=== PATIENT | female | born 1990 | race Caucasian/White ===

== ENCOUNTER 2020-12-20 13:14 | Emergency (ER) | payer BC, OTHER ==
[2020-12-20 13:49] VITALS: RESP 18
--- NOTE | 2020-12-20 14:50 | XR ---
EXAMINATION TYPE: XR Hip Bilateral Complete DATE OF EXAM: 12/20/2020 COMPARISON: NONE HISTORY: Pain TECHNIQUE: 2 views submitted FINDINGS: There is no evidence of erosive change or acute fracture. IMPRESSION: 1. No evidence of acute fracture or dislocation.
--- NOTE | 2020-12-20 14:51 | XR ---
EXAM TYPE: LUMBAR SPINE X RAY SERIES COMPARISON: NONE HISTORY: Pain TECHNIQUE: 4 views are submitted. FINDINGS: Alignment is anatomic. The pedicles are intact. The transverse processes are intact. There is no s pondylolysis or spondylolisthesis. IMPRESSION: 1. No acute process.
[2020-12-20] MEDS ORDERED: MORPHINE SULFATE 2 MG/ML SYRINGE IVP ONE (14:55)
[2020-12-20] MEDS ORDERED: methylPREDNISolone SOD SUCCI 125 MG/2 ML VIAL IV STA (14:55)
[2020-12-20] MEDS ORDERED: methylPREDNISolone SOD SUCCI 125 MG/2 ML VIAL IM ONE (14:57)
[2020-12-20] MEDS ORDERED: MORPHINE SULFATE 2 MG/ML SYRINGE IM STA (14:57)
--- NOTE | 2020-12-20 15:04 | ED ---
General Adult HPI - General Chief complaint: Extremity Problem,Nontraumatic Stated complaint: R hip pain Time Seen by Provider: 12/20/20 14:44 Source: patient, RN notes reviewed Mode of arrival: ambulatory Limitations: no limitations - History of Present Illness Initial comments: Patient is a 30-year-old female that presents to the emergency department complaining of low back pain with radiation of the right hip. She denied any recent injury or trauma. She notes that is been going on for approximately 3 days. She notes that she has had the similar pain in the past but usually goes away on its own. She was otherwise a well-appearing 30-year-old female with no other issues or complaints. She denied any weakness numbness tingling saddle anesthesia bladder or bowel incontinence. - Related Data Home Medications Medication Instructions Recorded Confirmed Multivitamin [Children's 2 tab PO DAILY 09/19/15 11/23/15 Multivitamins] Previous Rx's Medication Instructions Recorded predniSONE 50 mg PO DAILY #5 tab 12/20/20 Allergies Allergy/AdvReac Type Severity Reaction Status Date / Time cyclobenzaprine HCl Allergy Rash/Hives Verified 12/20/20 13:49 [From Flexeril] tomato [Tomato] Allergy Rash/Hives Verified 12/20/20 13:49 Review of Systems ROS Statement: Those systems with pertinent positive or pertinent negative responses have been documented in the HPI. ROS Other: All systems not noted in ROS Statement are negative. Past Medical History Past Medical History: No Reported History Additional Past Medical History / Comment(s): Past obstetrical history: In her first she had a 31 week section for breech and the infant has . Patient has successful at 36 weeks, and another first successful at 39 weeks with weekly progesterone injections. This she's been seeing Dr. Barillas and has had a consult with Dr. Maki. She is not due to see him again until November 24. History of Any Multi-Drug Resistant Organisms: None Reported Past Surgical History: Section Past Anesthesia/Blood Transfusion Reactions: No Reported Reaction Past Psychological History: No Psychological Hx Reported Smoking Status: Never smoker Past Alcohol Use History: Occasional Past Drug Use History: None Reported - Past Family History Father Additional Family Medical History / Comment(s): Patient states father has "heart problems". General Exam Limitations: no limitations General appearance: alert, in no apparent distress Head exam: Present: atraumatic, normocephalic, normal inspection Eye exam: Present: normal appearance, PERRL, EOMI. Absent: scleral icterus, conjunctival injection, periorbital swelling Neck exam: Present: normal inspection Respiratory exam: Present: normal lung sounds bilaterally. Absent: respiratory distress, wheezes, rales, rhonchi, stridor Cardiovascular Exam: Present: regular rate, normal rhythm, normal heart sounds. Absent: systolic murmur, diastolic murmur, rubs, gallop, clicks Extremities exam: Present: normal inspection, full ROM, normal capillary refill. Absent: tenderness, pedal edema, joint swelling, calf tenderness Back exam: Present: normal inspection, tenderness (Right SI) Neurological exam: Present: alert, oriented X3 Psychiatric exam: Present: normal affect, normal mood Skin exam: Present: warm, dry, intact, normal color. Absent: rash Course Vital Signs 12/20/20 13:46 Temperature 98.5 F Pulse Rate 80 Respiratory 18 Rate Blood Pressure 126/79 O2 Sat by Pulse 98 Oximetry Medical Decision Making - Medical Decision Making 30-year-old female complaining of right lower back pain with radiation of the right leg. X-ray of the lumbar spine, x-ray of the hips ordered. 125 mg of Solu-Medrol, 2 mg of morphine ordered. X-ray imaging negative for any acute osseous abnormalities. Patient most likely has sciatica with radicular symptoms. Case discussed with Dr. Bourgeois, patient can discharge home. - Radiology Data Radiology results: report reviewed, image reviewed X-ray lumbar spine: No acute process. X-ray of the bilateral hips: No evidence of acute fracture dislocation. Disposition Clinical Impression: Sciatica, Lumbar radiculopathy Disposition: HOME SELF-CARE Condition: Stable Instructions (If sedation given, give patient instructions): Back Pain (ED) Additional Instructions: Please return to the Emergency Department if symptoms worsen or any other concerns. Follow-up with primary care in one to days, discuss potential physical therapy. Take steroids as prescribed. Is patient prescribed a controlled substance at d/c from ED?: No Referrals: None,Stated [Primary Care Provider] - 1-2 days Time of Disposition: 15:04
[2020-12-20 15:24] VITALS: BP 122/74; PULSE 81; TEMP 98.4
== END 2020-12-20 15:23 | disposition home or self-care (01) ==
LOC: EC 13:14
DX: M54.41 Lumbago with sciatica, right side (principal); M54.16 Radiculopathy, lumbar region; Z88.8 Allergy status to other drugs, medicaments and biological substances; Z91.018 Allergy to other foods
CPT/HCPCS: 72100; 73521; 99283; 96372; J2930; J2270

== ENCOUNTER → 2021-03-06 | Outpatient (CLI) | payer BC ==
--- NOTE | 2021-03-07 06:34 | MR ---
EXAMINATION TYPE: MR hip RT wo con DATE OF EXAM: 03/06/2021 COMPARISON: None HISTORY: Right hip pain, and limited movement for 3 years that has gotten worse this year Multiplanar multiecho imaging of the pelvis and right hip without contrast. The pelvic ring appears intact. Proximal femurs and hip joints are intact. There is no evidence of av ascular necrosis. There is no significant hip joint fluid. Hip joint spaces appear normal. There is no evidence of free fluid in the pelvis. Bladder distends smoothly. There are multiple cervi kamaljit cysts. There is no sign of a pelvic mass. Sacroiliac joints appear intact. IMPRESSION: Negative MR scan of the right hip.
== END | disposition home or self-care (01) ==
LOC: RADMRIMAIN 19:09
PROVIDERS: ATTEND Orthopaedic Surgery
DX: M25.551 Pain in right hip (principal)

== ENCOUNTER 2022-05-14 09:07 | Emergency (ER) | payer BC, OTHER ==
[2022-05-14 09:16] VITALS: BP 108/67; PULSE 92; RESP 18; TEMP 98
--- NOTE | 2022-05-14 09:37 | XR ---
EXAMINATION TYPE: XR Hip Complete LT DATE OF EXAM: 05/14/2022 9:32 AM INDICATION: Patient age:Female; 32 years old; Reason for study: Pain from fall; [facility]. COMPARISON: Bilateral hip radiographs 12/20/2020 TECHNIQUE: The left hip was examined in the frontal and lateral projections and a AP pelvis. FINDINGS: No evidence of any acute osseous pathology, joint dislocation, or soft tissue swelling. IMPRESSION: No acute osseous pathology.
--- NOTE | 2022-05-14 09:45 | ED ---
Lower Extremity Injury HPI - General Chief Complaint: Extremity Injury, Lower Stated Complaint: [facility] - fall - hip pain Time Seen by Provider: 05/14/22 09:18 Source: patient, RN notes reviewed Mode of arrival: ambulatory Limitations: no limitations - History of Present Illness Initial Comments: This is a 32-year-old female who presents to the emergency department for left hip pain. 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 She did not actually fall, but is concerned that she may have twisted her left hip. 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 She took ibuprofen at home yesterday, which she states was effective. The pain is more pronounced when she walks, however she states that she is still able to ambulate. Denies any fevers, chills, sore throat, cough, dyspnea, chest pain, palpi tations, abdominal pain, nausea, vomiting, diarrhea, back pain, or headaches. MD Complaint: hip injury Onset/Timin -: days(s) Injury: Hip: Left Place: work - Related Data Home Medications Medication Instructions Recorded Confirmed Multivitamin [Children's 2 tab PO DAILY 09/19/15 11/23/15 Multivitamins] Previous Rx's Medication Instructions Recorded predniSONE 50 mg PO DAILY #5 tab 12/20/20 Allergies Allergy/AdvReac Type Severity Reaction Status Date / Time cyclobenzaprine HCl Allergy Rash/Hives Verified 05/14/22 09:16 [From Flexeril] tomato [Tomato] Allergy Rash/Hives Verified 05/14/22 09:16 Review of Systems ROS Statement: Those systems with pertinent positive or pertinent negative responses have been documented in the HPI. ROS Other: All systems not noted in ROS Statement are negative. Past Medical History Past Medical History: No Reported History Additional Past Medical History / Comment(s): Past obstetrical history: In her first she had a 31 week section for breech and the infant has . Patient has successful at 36 weeks, and another first successful at 39 weeks with weekly progesterone injections. This she's been seeing Dr. Barillas and has had a consult with Dr. Maki. She is not due to see him again until November 24. History of Any Multi-Drug Resistant Organisms: None Reported Past Surgical History: Section Past Anesthesia/Blood Transfusion Reactions: No Reported Reaction Past Psychological History: No Psychological Hx Reported Smoking Status: Never smoker Past Alcohol Use History: Occasional Past Drug Use History: None Reported - Past Family History Father Additional Family Medical History / Comment(s): Patient states father has "heart problems". General Exam Limitations: no limitations General appearance: alert, in no apparent distress Head exam: Present: atraumatic, normocephalic, normal inspection Respiratory exam: Present: normal lung sounds bilaterally. Absent: respiratory distress, wheezes, rales, rhonchi, stridor Cardiovascular Exam: Present: regular rate, normal rhythm, normal heart sounds. Absent: systolic murmur, diastolic murmur, rubs, gallop, clicks Extremities exam: Present: other (Tenderness to palpation over the left greater trochanter. Limited active range of motion secondary to pain. No overlying ecchymosis. 2+ dorsalis pedis and tibialis posterior pulses.) Neurological exam: Present: alert, oriented X3, CN II-XII intact Psychiatric exam: Present: normal affect, normal mood Skin exam: Present: warm, dry, intact, normal color. Absent: rash Course Vital Signs 05/14/22 09:09 Temperature 98 F Pulse Rate 92 Respiratory 18 Rate Blood Pressure 108/67 O2 Sat by Pulse 98 Oximetry Medical Decision Making - Medical Decision Making This is a 32 year old female who presents to the emergency department for left hip pain. Was pt. sent in by a medical professional or institution? @ -[facility] Did you speak to anyone other than the patient for history? @ -No Did you review nursing and triage notes? @ -Disagree, the patient did not actually fall, she stumbled when coming off of the steps. Were old charts reviewed? @ -No Differential Diagnosis? @ -Differential diagnosis of left hip pain: fracture, dislocation, contusion, strain, bursitis, this is not meant to be an all-inclusive list. X-rays interpreted by me (1pt min.)? @ -My interpretation of the left hip x-ray identifies no acute fractures or dislocations. What testing was considered but not performed? (CT, X-rays, U/S, labs)? Why? @ -None What meds were considered but not given? Why? @ -I offered Ibuprofen or Toradol, however the patient declined the need for pain medication at this time. Did you discuss the management of the patient with other professionals? @ -No Did you reconcile home meds? @ -No Was smoking cessation discussed for >3mins.? @ -No Was critical care preformed (if so, how long)? @ -No Were there social determinants of health that impacted care today? How? (Homelessness, low income, unemployed, alcoholism, drug addiction, transportation, low edu. Level, literacy, decrease access to med. care, halfway, rehab)? @ -No Was there de-escalation of care discussed even if they declined? (Discuss DNR or withdrawal of care, Hospice)? @ -No What co-morbidities impacted this encounter? (DM, HTN, Smoking, COPD, CAD, Cancer, CVA, Hep., AIDS, mental health diagnosis, sleep apnea, morbid obesity)? @ -Morbid obesity Was patient admitted / discharged? @ -Discharged. X-ray of the left hip obtained with no acute findings as listed above. Patient declined the need for any ibuprofen to treat her pain. She is instructed to alternate with ibuprofen and Tylenol as needed for pain relief and to apply ice for 10-15 minutes every 2-3 hours for the first 2-3 days followed by heat there afterwards. Instructed her to follow-up with her primary care provider to reevaluate symptoms and ensure that she is improving, or discuss the need for any additional imaging if the pain persists or worsens. Undiagnosed new problem with uncertain prognosis? @ -Left hip pain Drug Therapy requiring intensive monitoring for toxicity (Heparin, Nitro, Insulin, Cardizem)? @ -None Were any procedures done? @ -None Diagnosis/symptom? @ -Left hip pain Acute, or Chronic, or Acute on Chronic? @ -Acute Uncomplicated (without systemic symptoms) or Complicated (systemic symptoms)? @ -Uncomplicated Side effects of treatment? @ -None Exacerbation, Progression, or Severe Exacerbation] @ -Not applicable Poses a threat to life or bodily function? @ -May impact her ability to function if the pain causes difficulty walking. Return precautions reviewed in depth, the patient is instructed to return to the emergency department with any new, worsening, or concerning symptoms. Patient verbalized understanding. This case was discussed in detail with the attending ED physician, Dr. Machuca. Presentation, findings, and treatment plan discussed in detail as well. - Radiology Data Radiology results: report reviewed, image reviewed Disposition Clinical Impression: Left hip pain Disposition: HOME SELF-CARE Instructions (If sedation given, give patient instructions): Hip Pain (ED) Additional Instructions: Return to the emergency department with any new, worsening, or concerning symptoms. Alternate with ibuprofen and Tylenol as needed for pain relief. Apply ice for 10-15 minutes every 2-3 hours for the first 2-3 days followed by heat there afterwards. Follow up with your primary care provider in 1-2 days. Is patient prescribed a controlled substance at d/c from ED?: No Referrals: Ashish Carter MD [Primary Care Provider] - 1-2 days
== END 2022-05-14 10:15 | disposition home or self-care (01) ==
LOC: EC 09:07
DX: M25.552 Pain in left hip (principal); Z91.018 Allergy to other foods; Z88.8 Allergy status to other drugs, medicaments and biological substances
CPT/HCPCS: 73502; 99283

== ENCOUNTER 2023-06-25 10:00 | Emergency (ER) | payer OTHER ==
[2023-06-25 10:18] VITALS: RESP 18; TEMP 98.1
--- NOTE | 2023-06-25 10:26 | ED ---
Lower Extremity Injury HPI - General Chief Complaint: Extremity Injury, Lower Stated Complaint: R ankle,knee injury Time Seen by Provider: 06/25/23 10:24 Source: patient, RN notes reviewed Mode of arrival: ambulatory Limitations: no limitations - History of Present Illness Initial Comments: This is a 33 year old female who presents to the emergency department for right knee and ankle pain. States that she twisted her right leg a couple of days ago while trying to put a shoe on the left foot. She initially went to [facility], they examined her but did not do any x-rays. States that the pain and swelling seem to be getting worse and now her leg feels very tight. She is still able to ambulate. - Related Data Home Medications Medication Instructions Recorded Confirmed Multivitamin [Children's 2 tab PO DAILY 09/19/15 11/23/15 Multivitamins] Previous Rx's Medication Instructions Recorded predniSONE 50 mg PO DAILY #5 tab 12/20/20 Allergies Allergy/AdvReac Type Severity Reaction Status Date / Time cyclobenzaprine HCl Allergy Rash/Hives Verified 05/14/22 09:16 [From Flexeril] tomato [Tomato] Allergy Rash/Hives Verified 05/14/22 09:16 Review of Systems ROS Statement: Those systems with pertinent positive or pertinent negative responses have been documented in the HPI. ROS Other: All systems not noted in ROS Statement are negative. Past Medical History Past Medical History: No Reported History Additional Past Medical History / Comment(s): Past obstetrical history: In her first she had a 31 week section for breech and the has . Patient has successful at 36 weeks, and another first successful at 39 weeks with weekly progesterone injections. This she's been seeing Dr. Barillas and has had a consult with Dr. Maki. She is not due to see him again until November 24. History of Any Multi-Drug Resistant Organisms: None Reported Past Surgical History: Section Past Anesthesia/Blood Transfusion Reactions: No Reported Reaction Past Psychological History: No Psychological Hx Reported Smoking Status: Never smoker Past Alcohol Use History: Occasional Past Drug Use History: None Reported - Past Family History Father Additional Family Medical History / Comment(s): Patient states father has "heart problems". General Exam Limitations: no limitations General appearance: alert, in no apparent distress Head exam: Present: atraumatic, normocephalic, normal inspection Respiratory exam: Present: normal lung sounds bilaterally. Absent: respiratory distress, wheezes, rales, rhonchi, stridor Cardiovascular Exam: Present: regular rate, normal rhythm, normal heart sounds. Absent: systolic murmur, diastolic murmur, rubs, gallop, clicks Extremities exam: Present: other (Minor swelling and tenderness over the right patella and lateral aspect of the right ankle. Full range of motion.) Neurological exam: Present: alert, oriented X3, CN II-XII intact Psychiatric exam: Present: normal affect, normal mood Skin exam: Present: warm, dry, intact, normal color. Absent: rash Course Vital Signs 06/25/23 06/25/23 10:10 12:03 Temperature 98.1 F Pulse Rate 103 H 93 Respiratory 18 18 Rate Blood Pressure 114/71 103/61 O2 Sat by Pulse 99 99 Oximetry Medical Decision Making - Medical Decision Making This is a 33 year old female who presents to the emergency department for right knee and ankle pain. Was pt. sent in by a medical professional or institution? @ -No Did you speak to anyone other than the patient for history? @ -No Did you review nursing and triage notes? @ -Yes, and I agree, it is accurate with regards to the patient's symptoms. Were old charts reviewed? @ -No Differential Diagnosis? @ -Differential Musculoskeletal: Muscular strain, contusion, ligament sprain, fracture, arthritis, septic arthritis, bursitis, cellulitis, muscle spasm, nerve compression, DVT, arterial occlusion, herpes zoster, electrolyte abnormality, tumor.... This is not meant to be in all inclusive list EKG interpreted by me (3pts min.)? @ -Not obtained X-rays interpreted by me (1pt min.)? @ -X-ray of the right knee and ankle obtained. My interpretation identifies no acute fractures. CT interpreted by me (1pt min.)? @ -Not obtained U/S interpreted by me (1pt. min.)? @ -Not obtained What testing was considered but not performed? (CT, X-rays, U/S, labs)? Why? @ -None What meds were considered but not given? Why? @ -None Did you discuss the management of the patient with other professionals? @ -No Did you reconcile home meds? @ -No Was smoking cessation discussed for >3mins.? @ -No Was critical care preformed (if so, how long)? @ -No Were there social determinants of health that impacted care today? How? (Homelessness, low income, unemployed, alcoholism, drug addiction, transportation, low edu. Level, literacy, decrease access to med. care, long term, rehab)? @ -No Was there de-escalation of care discussed even if they declined? (Discuss DNR or withdrawal of care, Hospice)? @ -No What co-morbidities impacted this encounter? (DM, HTN, Smoking, COPD, CAD, Cancer, CVA, Hep., AIDS, mental health diagnosis, sleep apnea, morbid obesity)? @ -None Was patient admitted / discharged? @ -Discharged. X-ray of the right knee and ankle obtained demonstrating medial soft tissue swelling and a trace knee joint effusion. The right ankle also showed anterior and lateral soft tissue swelling with underlying joint effusion. No acute osseous abnormalities were identified. Patient declined the need for any pain medication in the emergency department. I did also offer to prescribe her with ibuprofen, however she states that she has plenty at home she can take. I also offered a knee immobilizer or crutches, however she does have a knee brace that she can use at home. Patient otherwise discharged home in stable condition. Advised ibuprofen and Tylenol as needed for pain relief, elevation, and rest. Undiagnosed new problem with uncertain prognosis? @ -None Drug Therapy requiring intensive monitoring for toxicity (Heparin, Nitro, Insulin, Cardizem)? @ -None Were any procedures done? @ -None Diagnosis/symptom? @ -Right knee sprain, right ankle sprain, joint effusion Acute, or Chronic, or Acute on Chronic? @ -Acute Uncomplicated (without systemic symptoms) or Complicated (systemic symptoms)? @ -Uncomplicated Side effects of treatment? @ -None Exacerbation, Progression, or Severe Exacerbation] @ -Not applicable Poses a threat to life or bodily function? @ -No Return precautions reviewed in depth, the patient is instructed to return to the emergency department with any new, worsening, or concerning symptoms. Patient verbalized understanding. This case was discussed in detail with the attending ED physician, Dr. Bourgeois. Presentation, findings, and treatment plan discussed in detail as well. - Radiology Data Radiology results: report reviewed, image reviewed Disposition Clinical Impression: Right knee sprain, Right ankle sprain, Joint effusion Disposition: HOME SELF-CARE Instructions (If sedation given, give patient instructions): Ankle Sprain (ED), Knee Sprain (ED), Swollen Knee Joint (ED) Additional Instructions: Return to the emergency department with any new, worsening, or concerning symptoms. Alternate with ibuprofen and Tylenol as needed for pain relief. Use the knee brace as needed. Keep the leg elevated is much as possible and try to give it lots of rest and avoid being on your feet for excess amounts until your symptoms start to improve. Contact orthopedics as listed below for your follow- up appointment. Follow up with your primary care provider in 1-2 days. Is patient prescribed a controlled substance at d/c from ED?: No Referrals: Ashish Carter MD [Primary Care Provider] - 1-2 days Miranda Rodriguez DO [Doctor of Osteopathic Medicine] - 1-2 days Time of Disposition: 11:47
--- NOTE | 2023-06-25 11:26 | XR ---
EXAMINATION TYPE: XR knee complete 3 views RT, XR ankle complete 3 views RT DATE OF EXAM: 06/25/2023 COMPARISON: NONE HISTORY: 33-year-old female with twisting injury, fall and pain FINDINGS: Right knee: Trace suprapatellar knee joint effusion is nonspecific. Extensor mechanism is intact. No acute fractu re, subluxation, dislocation. Medial sided soft tissue swelling. Right ankle: Ankle mortise is congruent with preservation of the distal tibiofibular overlap. Small underlying tib iotalar joint effusion. No acute fracture, subluxation, dislocation. Some anterior and lateral sided soft tissue swelling. Tiny 2 mm corticated ossific density below the lateral malleolus suggesting seq uela of old injury. IMPRESSION: 1. Right knee: Medial soft tissue swelling. Trace knee joint effusion is nonspecific. No acute osseou s abnormality seen. If concern for internal derangement, MRI can be performed. 2. Right ankle: Anterior and lateral soft tissue swelling with underlying small joint effusion. No ac richard osseous abnormality seen.
[2023-06-25 12:27] VITALS: BP 103/61; PULSE 93
== END 2023-06-25 12:04 | disposition home or self-care (01) ==
LOC: EC 10:00
DX: S83.91XA Sprain of unspecified site of right knee, initial encounter (principal); S93.401A Sprain of unspecified ligament of right ankle, initial encounter; Z91.018 Allergy to other foods; Z88.8 Allergy status to other drugs, medicaments and biological substances; X50.1XXA Overexertion from prolonged static or awkward postures, initial encounter
CPT/HCPCS: 99283

== ENCOUNTER 2024-01-29 09:43 | Emergency (ER) | payer OTHER ==
[2024-01-29 11:09] LABS: Appearance,Urine Cloudy (Clear); Bilirubin,Urine Negative (Negative); Blood,Urine Negative (Negative); Color,Urine Yellow; Glucose,Urine (UA) Negative (Negative); Ketones,Urine Negative (Negative); Leukocyte Esterase,Urine Trace (Negative); Mucus,Urine Many /hpf; Nitrite,Urine Negative (Negative); PH, Urine 5.5 (5.0-8.0); Protein,Urine Trace (Negative); RBC,Urine 2 /hpf (0-5); Specific Gravity,Urine 1.035 (1.001-1.035); Squamous Epithelial Cell,Urine 4 /hpf (0-4); WBC,Urine 3 /hpf (0-5)
[2024-01-29 11:19] LABS: Basophils % (A) 0 %; Eosinophils # (A) 0.1 k/uL (0-0.7); Eosinophils % (A) 2 %; HCT 37.7 % (34.0-46.0); HGB 12.7 gm/dL (11.4-16.0); Lymphocytes # (A) 1.4 k/uL (1.0-4.8); Lymphocytes % (A) 17 %; MCH 29.3 pg (25.0-35.0); MCHC 33.6 g/dL (31.0-37.0); MCV 87.2 fL (80.0-100.0); Mean Platelet Volume 7.9; Monocytes # (A) 0.3 k/uL (0-1.0); Monocytes % (A) 4 %; Neutrophils # (A) 6.2 k/uL (1.3-7.7); Neutrophils % (A) 76 %; Platelet Count 316 k/uL (150-450); RBC 4.32 m/uL (3.80-5.40); WBC 8.3 k/uL (3.8-10.6)
[2024-01-29 11:30] LABS: HCG,Qualitative Serum Not Detected
--- NOTE | 2024-01-29 11:31 | ED ---
General Adult HPI - General Chief complaint: Neuro Symptoms/Deficit Stated complaint: L side facial numbness Time Seen by Provider: 01/29/24 10:07 Source: patient, RN notes reviewed Mode of arrival: ambulatory Limitations: no limitations - History of Present Illness Initial comments: This is a 33-year-old female who presents to the emergency department for left- sided facial numbness. States that she woke up yesterday and felt like the left side of her face was numb. She also felt like the left side of her face was swollen. She had a minor headache and pain along the left side of her jaw. This seemed to then occur intermittently throughout the day. As the day progressed she felt like she could not fully close the eye. Symptoms did not go elsewhere, states that it only stayed in the face. - Related Data Home Medications Medication Instructions Recorded Confirmed Multivitamin [Children's 2 tab PO DAILY 09/19/15 11/23/15 Multivitamins] Previous Rx's Medication Instructions Recorded predniSONE 50 mg PO DAILY #5 tab 12/20/20 predniSONE [Deltasone] 60 mg PO DAILY 7 Days #21 tab 01/29/24 valACYclovir HCL [Valacyclovir] 1,000 mg PO TID 7 Days #21 tab 01/29/24 Allergies Allergy/AdvReac Type Severity Reaction Status Date / Time cyclobenzaprine HCl Allergy Rash/Hives Verified 01/29/24 09:47 [From Flexeril] tomato [Tomato] Allergy Rash/Hives Verified 01/29/24 09:47 Review of Systems ROS Statement: Those systems with pertinent positive or pertinent negative responses have been documented in the HPI. ROS Other: All systems not noted in ROS Statement are negative. Past Medical History Past Medical History: No Reported History Additional Past Medical History / Comment(s): Past obstetrical history: In her first she had a 31 week section for breech and the has . Patient has successful at 36 weeks, and another first successful at 39 weeks with weekly progesterone injections. This she's been seeing Dr. Barillas and has had a consult with Dr. Maki. She is not due to see him again until November 24. History of Any Multi-Drug Resistant Organisms: None Reported Past Surgical History: Section Past Anesthesia/Blood Transfusion Reactions: No Reported Reaction Past Psychological History: No Psychological Hx Reported Smoking Status: Never smoker Past Alcohol Use History: Occasional Past Drug Use History: None Reported - Past Family History Father Additional Family Medical History / Comment(s): Patient states father has "heart problems". General Exam Limitations: no limitations General appearance: alert, in no apparent distress Head exam: Present: atraumatic, normocephalic, normal inspection Eye exam: Present: normal appearance, PERRL, EOMI. Absent: scleral icterus, c onjunctival injection, periorbital swelling Respiratory exam: Present: normal lung sounds bilaterally. Absent: respiratory distress, wheezes, rales, rhonchi, stridor Cardiovascular Exam: Present: regular rate, normal rhythm, normal heart sounds. Absent: systolic murmur, diastolic murmur, rubs, gallop, clicks Neurological exam: Present: alert, oriented X3, CN II-XII intact Expanded Cerebellar function: Finger to Nose: Normal, Heel to Romero: Normal, Romberg: Normal Motor strength exam: RUE: 5, LUE: 5, RLE: 5, LLE: 5 Psychiatric exam: Present: normal affect, normal mood Skin exam: Present: warm, dry, intact, normal color. Absent: rash Course Vital Signs 01/29/24 01/29/24 01/29/24 09:44 10:34 10:42 Temperature 97.9 F 98.4 F 98.4 F Pulse Rate 112 H 89 Respiratory 20 16 16 Rate Blood Pressure 106/75 110/72 O2 Sat by Pulse 98 98 Oximetry 01/29/24 01/29/24 11:53 12:41 Temperature 98.2 F Pulse Rate 78 82 Respiratory 18 16 Rate Blood Pressure 106/71 111/71 O2 Sat by Pulse 98 99 Oximetry Medical Decision Making - Medical Decision Making This is a 33 year old female who presents to the emergency department for left sided facial numbness. Was pt. sent in by a medical professional or institution? @ -No Did you speak to anyone other than the patient for history? @ -No Did you review nursing and triage notes? @ -Yes, and I agree, it is accurate with regards to the patient's symptoms. Were old charts reviewed? @ -No Differential Diagnosis? @ -Differential Facial Paresthesias: Espana's palsy, CVA, Lyme disease, injury, tumor, trigeminal neuralgia, this is not meant to be an all-inclusive list. EKG interpreted by me (3pts min.)? @ -EKG interpreted by me demonstrating the following: Sinus rhythm. Ventricular rate 71 bpm, ID interval 178 ms, QRS duration 110 ms, QTc 388 ms. X-rays interpreted by me (1pt min.)? @ -Not obtained CT interpreted by me (1pt min.)? @ -CT scan of the brain obtained. My interpretation identifies no evidence of an acute intracranial hemorrhage or mass effect. CTA of the head and neck obtained. My interpretation identifies no evidence of an aneurysm or dissection. U/S interpreted by me (1pt. min.)? @ -Not obtained What testing was considered but not performed? (CT, X-rays, U/S, labs)? Why? @ -None What meds were considered but not given? Why? @ -None Did you discuss the management of the patient with other professionals? @ -No Did you reconcile home meds? @ -No Was smoking cessation discussed for >3mins.? @ -No Was critical care preformed (if so, how long)? @ -No Were there social determinants of health that impacted care today? How? (Homelessness, low income, unemployed, alcoholism, drug addiction, tra nsportation, low edu. Level, literacy, decrease access to med. care, alf, rehab)? @ -No Was there de-escalation of care discussed even if they declined? (Discuss DNR or withdrawal of care, Hospice)? @ -No What co-morbidities impacted this encounter? (DM, HTN, Smoking, COPD, CAD, Cancer, CVA, Hep., AIDS, mental health diagnosis, sleep apnea, morbid obesity)? @ -None Was patient admitted / discharged? @ -Discharged. Lab work unremarkable. CT scan of the brain and CTA of the head and neck obtained revealing no acute process. Patient had mild unilateral numbness on the left side of the face and difficulty fully closing the eye. Advised that symptoms are likely related to Espana's palsy. Will start her on the treatment with steroids and valacyclovir. This was prescribed. Patient discharged home in stable condition. Case discussed with ED attending Dr. Machuca. Return precautions reviewed in depth, the patient is instructed to return to the emergency department with any new, worsening, or concerning symptoms. Patient verbalized understanding. Undiagnosed new problem with uncertain prognosis? @ -None Drug Therapy requiring intensive monitoring for toxicity (Heparin, Nitro, Insulin, Cardizem)? @ -None Were any procedures done? @ -None Diagnosis/symptom? @ -Espana's palsy Acute, or Chronic, or Acute on Chronic? @ -Acute Uncomplicated (without systemic symptoms) or Complicated (systemic symptoms)? @ -Uncomplicated Side effects of treatment? @ -None Exacerbation, Progression, or Severe Exacerbation] @ -Not applicable Poses a threat to life or bodily function? @ -No - Lab Data Result diagrams: 01/29/24 11:11 01/29/24 11:11 Lab Results 01/29/24 01/29/24 01/29/24 Range/Units 10:56 10:56 11:11 WBC 8.3 (3.8-10.6) k/uL RBC 4.32 (3.80-5.40) m/uL Hgb 12.7 (11.4-16.0) gm/dL Hct 37.7 (34.0-46.0) % MCV 87.2 (80.0-100.0) fL MCH 29.3 (25.0-35.0) pg MCHC 33.6 (31.0-37.0) g/dL RDW 13.0 (11.5-15.5) % Plt Count 316 (150-450) k/uL MPV 7.9 Neutrophils % 76 % Lymphocytes % 17 % Monocytes % 4 % Eosinophils % 2 % Basophils % 0 % Neutrophils # 6.2 (1.3-7.7) k/uL Lymphocytes # 1.4 (1.0-4.8) k/uL Monocytes # 0.3 (0-1.0) k/uL Eosinophils # 0.1 (0-0.7) k/uL Basophils # 0.0 (0-0.2) k/uL PT (10.0-12.5) sec INR (<1.2) APTT (22.0-30.0) sec Sodium (137-145) mmol/L Potassium (3.5-5.1) mmol/L Chloride (98-107) mmol/L Carbon Dioxide (22-30) mmol/L Anion Gap mmol/L BUN (7-17) mg/dL Creatinine (0.52-1.04) mg/dL Est GFR (CKD-EPI)AfAm (>60 ml/min/1.73 sqM) Est GFR (CKD-EPI)NonAf (>60 ml/min/1.73 sqM) Glucose (74-99) mg/dL Calcium (8.4-10.2) mg/dL Total Bilirubin (0.2-1.3) mg/dL AST (14-36) U/L ALT (4-34) U/L Alkaline Phosphatase (38-126) U/L Total Protein (6.3-8.2) g/dL Albumin (3.5-5.0) g/dL HCG, Qual Urine Color Yellow Urine Appearance Cloudy H (Clear) Urine pH 5.5 (5.0-8.0) Ur Specific Sargeant 1.035 (1.001-1.035) Urine Protein Trace H (Negative) Urine Glucose (UA) Negative (Negative) Urine Ketones Negative (Negative) Urine Blood Negative (Negative) Urine Nitrite Negative (Negative) Urine Bilirubin Negative (Negative) Urine Urobilinogen 2.0 (<2.0) mg/dL Ur Leukocyte Esterase Trace H (Negative) Urine RBC 2 (0-5) /hpf Urine WBC 3 (0-5) /hpf Ur Squamous Epith Cells 4 (0-4) /hpf Urine Mucus Many H (None) /hpf Urine HCG, Qual Not Detected (Not Detectd) 01/29/24 01/29/24 Range/Units 11:11 11:11 WBC (3.8-10.6) k/uL RBC (3.80-5.40) m/uL Hgb (11.4-16.0) gm/dL Hct (34.0-46.0) % MCV (80.0-100.0) fL MCH (25.0-35.0) pg MCHC (31.0-37.0) g/dL RDW (11.5-15.5) % Plt Count (150-450) k/uL MPV Neutrophils % % Lymphocytes % % Monocytes % % Eosinophils % % Basophils % % Neutrophils # (1.3-7.7) k/uL Lymphocytes # (1.0-4.8) k/uL Monocytes # (0-1.0) k/uL Eosinophils # (0-0.7) k/uL Basophils # (0-0.2) k/uL PT 10.6 (10.0-12.5) sec INR 1.0 (<1.2) APTT 25.2 (22.0-30.0) sec Sodium 141 (137-145) mmol/L Potassium 3.9 (3.5-5.1) mmol/L Chloride 108 H (98-107) mmol/L Carbon Dioxide 29 (22-30) mmol/L Anion Gap 4 mmol/L BUN 11 (7-17) mg/dL Creatinine 0.73 (0.52-1.04) mg/dL Est GFR (CKD-EPI)AfAm >90 (>60 ml/min/1.73 sqM) Est GFR (CKD-EPI)NonAf >90 (>60 ml/min/1.73 sqM) Glucose 98 (74-99) mg/dL Calcium 9.4 (8.4-10.2) mg/dL Total Bilirubin 0.8 (0.2-1.3) mg/dL AST 19 (14-36) U/L ALT 15 (4-34) U/L Alkaline Phosphatase 73 (38-126) U/L Total Protein 7.0 (6.3-8.2) g/dL Albumin 4.3 (3.5-5.0) g/dL HCG, Qual Not Detected Urine Color Urine Appearance (Clear) Urine pH (5.0-8.0) Ur Specific Sargeant (1.001-1.035) Urine Protein (Negative) Urine Glucose (UA) (Negative) Urine Ketones (Negative) Urine Blood (Negative) Urine Nitrite (Negative) Urine Bilirubin (Negative) Urine Urobilinogen (<2.0) mg/dL Ur Leukocyte Esterase (Negative) Urine RBC (0-5) /hpf Urine WBC (0-5) /hpf Ur Squamous Epith Cells (0-4) /hpf Urine Mucus (None) /hpf Urine HCG, Qual (Not Detectd) - Radiology Data Radiology results: report reviewed, image reviewed Disposition Clinical Impression: Espana's palsy Disposition: HOME SELF-CARE Instructions (If sedation given, give patient instructions): Espana Palsy (ED) Additional Instructions: Return to the emergency department with any new, worsening, or concerning symptoms. Take the prednisone and valacyclovir as prescribed for 7 days. You can try using artificial tears to lubricate the eye if becomes bothersome. Follow up with your primary care provider in 1-2 days. Prescriptions: predniSONE [Deltasone] 60 mg PO DAILY 7 Days #21 tab valACYclovir HCL [Valacyclovir] 1,000 mg PO TID 7 Days #21 tab Is patient prescribed a controlled substance at d/c from ED?: No Referrals: Madison Mares MD [Primary Care Provider] - 1-2 days Time of Disposition: 12:11
[2024-01-29 11:34] LABS: ALT 15 U/L (4-34); AST 19 U/L (14-36); African American GFR (CKD) >90 (>60 ml/min/1.73 sqM); Albumin 4.3 g/dL (3.5-5.0); Alkaline Phosphatase 73 U/L (38-126); Anion Gap 4 mmol/L; Blood Urea Nitrogen 11 mg/dL (7-17); Calcium 9.4 mg/dL (8.4-10.2); Carbon Dioxide 29 mmol/L (22-30); Chloride 108 mmol/L (98-107); Glucose 98 mg/dL (74-99); Non-African American GFR(CKD) >90 (>60 ml/min/1.73 sqM); Potassium 3.9 mmol/L (3.5-5.1); Sodium 141 mmol/L (137-145); Total Bilirubin 0.8 mg/dL (0.2-1.3)
[2024-01-29 11:47] LABS: Partial Thromboplastin Time 25.2 sec (22.0-30.0); Prothrombin Time 10.6 sec (10.0-12.5)
--- NOTE | 2024-01-29 11:58 | CT ---
EXAMINATION TYPE: CT brain wo con CT DLP: 1056 mGycm, Automated exposure control for dose reduction was used. DATE OF EXAM: 01/29/2024 11:53 AM COMPARISON: CT facial bones 01/03/2014 CLINICAL INDICATION:Female, 33 years old with history of Left sided facial numbness/weakness, NUMBNES S LEFT SIDE OF FACE TECHNIQUE: Brain: Multiple axial CT images of the brain were obtained without IV contrast. . Coronal and sagitta l reformats reviewed. FINDINGS: Brain: Extra-axial spaces: No abnormal extra-axial fluid collections. Ventricular system: Within normal limits Cerebral parenchyma: No acute intraparenchymal hemorrhage or mass effect. The stone-white junction is well differentiated. Cerebellum: Unremarkable. Mass effect: No evidence of midline shift. Intracranial vasculature: unremarkable Soft tissues: Normal. Calvarium/osseous structures: No depressed skull fracture. Paranasal sinuses and mastoid air cells: Mastoid air cells are clear. Minimal mucosal thickening in i nferior left maxilla sinus. Visualized orbits: Orbital contents are intact. IMPRESSION: No acute intracranial process. [facility], , 01/29/2024 11:56 AM
--- NOTE | 2024-01-29 12:02 | CT ---
EXAMINATION TYPE: CT angio head neck CT DLP: 673.3 mGycm, Automated exposure control for dose reduction was used. DATE OF EXAM: 01/29/2024 11:56 AM COMPARISON: CT brain of the same date. CLINICAL INDICATION:Female, 33 years old with history of Left sided facial numbness/weakness; PHH, le ft sided face numbness TECHNIQUE: Axially acquired helical CT angiogram of the head and neck was obtained with contrast util izing 75 cc of Isovue-[id number] administered intravenously. Axial images are supplemented with 3D reconstru ctions which were post-processed at an independent workstation. NASCET criteria used. FINDINGS: CTA HEAD: No evidence of acute intracranial hemorrhage, mass effect, or midline shift. The ventricles, sulci, a nd cisterns are unremarkable. The visualized portions of the internal carotid arteries, middle cerebral arteries, anterior cerebral arteries, and posterior cerebral arteries are patent. The basilar and vertebral arteries are patent. Vertebral arteries are codominant. CTA NECK: Right Carotid System: The common carotid artery and external carotid artery are patent. The carotid bifurcation demonstrate s no evidence of hemodynamically significant stenosis. The remaining portions of the internal carotid artery demonstrate normal size without significant narrowing. Left Carotid System: The common carotid artery and external carotid artery are patent. The carotid bifurcation demonstrate s no evidence of hemodynamically significant stenosis. The remaining portions of the internal carotid artery demonstrate normal size without significant narrowing. Vertebral arteries are patent without evidence hemodynamically significant stenosis. There is a three-vessel aortic arch. The origins of the great vessels are patent. No evidence of hemo dynamically significant stenosis. IMPRESSION: 1. No evidence of dissection of the cervical internal carotid arteries or vertebral arteries or any e vidence of significant stenosis at the carotid bifurcations. 2. No evidence of high-grade stenosis or intracranial aneurysm. [facility], , 01/29/2024 11:59 AM
[2024-01-29 12:51] VITALS: BP 111/71; PULSE 82; RESP 16; TEMP 98.2
== END 2024-01-29 12:41 | disposition home or self-care (01) ==
LOC: EC 09:43
DX: G51.0 Bell's palsy (principal); Z88.8 Allergy status to other drugs, medicaments and biological substances
CPT/HCPCS: 36415; 93005; 80053; 85025; 85610; 85730; 81001; 81025; 84703; 70496; 70450; 70498; 99284; Q9967